=== PATIENT | female | born 1975 | race African-American/Black ===

== ENCOUNTER 2020-07-04 22:06 | Emergency (ER) | payer MEDICAID ==
[~2020-07-04] VITALS: Ht 162.6 cm; Wt 40.8 kg
[2020-07-04] MEDS ORDERED: IPRATROPIUM BROM 0.5 MG/2.5ML INH SOL NEB ONE (22:15)
[2020-07-04] MEDS ORDERED: ALBUTEROL SULF 2.5 MG/0.5ML(0.5%) NEB SOLN NEB ONE (22:15)
[2020-07-05 01:05] VITALS: BP 129/71
== END 2020-07-05 01:10 | disposition home or self-care (01) ==
LOC: ER 22:09
DX: J45.901 Unspecified asthma with (acute) exacerbation (principal)
CPT/HCPCS: 71045; 94640; 99283; J7644

== ENCOUNTER 2020-07-09 17:52 | Emergency (ER) | payer MEDICAID | END 2020-07-09 17:53 | disposition left against medical advice (07) | LOC: ER 17:52 | DX: R06.02 Shortness of breath (principal); Z53.21 Procedure and treatment not carried out due to patient leaving prior to being seen by health care provider ==

== ENCOUNTER 2021-03-08 21:08 | Emergency (ER) | payer MEDICAID ==
[~2021-03-08] VITALS: Ht 162.6 cm; Wt 54.4 kg
[2021-03-08] MEDS ORDERED: ALBUTEROL SULF 2.5 MG/0.5ML(0.5%) NEB SOLN NEB ONE (22:15)
[2021-03-08] MEDS ORDERED: IPRATROPIUM BROM 0.5 MG/2.5ML INH SOL NEB ONE (22:15)
[2021-03-08 23:40] VITALS: BP 134/74
== END 2021-03-09 00:08 | disposition home or self-care (01) ==
LOC: ER 21:12
DX: J45.909 Unspecified asthma, uncomplicated (principal); E78.5 Hyperlipidemia, unspecified; Z98.890 Other specified postprocedural states
CPT/HCPCS: 94640; 99283; J7644